=== PATIENT | male | born 1995 | race Caucasian/White ===

== ENCOUNTER → 2019-03-05 | Emergency (ER) | payer MEDICAID ==
[~2019-03-05] VITALS: Ht 172.7 cm; Wt 115.7 kg
[~2019-03-05] MED LIST: DEXAMETHASONE SOD PHOSPHATE 10 MG/ML VIAL IM ONE; KETOROLAC TROMETHAMINE 60 MG/2 ML VIAL IM ONE
[2019-03-05 16:45] VITALS: BP_SYST 144
--- NOTE | 2019-03-05 16:45 | NUR ---
BROUGHT BACK TO BED #6 AND TRIAGED. REPORT GIVEN TO CARMINA
--- NOTE | 2019-03-05 16:46 | NUR ---
Patient is awake, alert, and oriented x4. Patient is complaining of cold like symptoms x5 days. Patient reports throat pain, difficulty swallowing.
--- NOTE | 2019-03-05 17:20 | NUR ---
nER DANAY Paredes examining patient.
[2019-03-05 18:45] LABS: STREPTOCOCCUS A SCREEN (RAPID) NEGATIVE (NEGATIVE)
[2019-03-05 18:58] LABS: INFLUENZA A&B ANTIGEN SCREEN NEGATIVE FOR A & B (NEGATIVE)
--- NOTE | 2019-03-05 19:00 | NUR ---
Report given to AYDIN Ruiz for continuation of care.
[2019-03-05 19:06] VITALS: BP_SYST 134
--- NOTE | 2019-03-05 19:06 | NUR ---
Patient given written and verbal discharge instructions and verbalizes understanding. ER TAIL RIPPER Lena discussed with patient the results and treatment provided. Patient in stable condition. ID arm band removed. IV catheter removed intact and dressing applied, no active bleeding. Rx of Prednisone, Motrin, Albuterol given. Patient educated on pain management and to follow up with PMD. Pain Scale 0. Opportunity for questions provided and answered. Medication side effect fact sheet provided.
== END | disposition still patient (30) ==
LOC: SED 16:45
DX: J02.8 Acute pharyngitis due to other specified organisms (principal); B97.89 Other viral agents as the cause of diseases classified elsewhere; R03.0 Elevated blood-pressure reading, without diagnosis of hypertension; F12.90 Cannabis use, unspecified, uncomplicated
CPT/HCPCS: 86403; 86710; 87081; 96372; 99283; J1100; J1885; 36415